=== PATIENT | female | born 1985 | race Hispanic/Latino ===

== ENCOUNTER 2016-05-14 13:05 | Emergency (ER) | payer MEDICAID ==
[2016-05-14 13:56] VITALS: BP 111/60
--- NOTE | 2016-05-14 17:36 | Emergency Department Report ---
Entered by TARSHA CHÁVEZ, acting as scribe for RICKEY JAIME PA. Abscess Boil HPI - HPI Chief Complaint: Skin/Abscess/Foreign Body Stated Complaint: ABSCESS Time Seen by Provider: 05/14/16 17:13 Duration: 4 Days Location: Other (right flank area) Severity: Moderate (5/10, burning in quality) History: Yes Fever (100.8), Yes Pain, Yes Purulent Drainage (green in color), Yes Previous History (last one occurred one year ago), No Numbness, No Foreign Body HPI: 31 y/o female presents to the ED c/o abscess to the right flank area beginning 4 days ago. Associated symptoms of burning pain and itching in the affected area, subjective fever and green drainage from the affected area, but she denies nausea, vomiting, SOB, chest pain, abdominal pain outside of the affected area. She has experienced similar symptoms previously, with the last episode occurring one year ago Home Medications: Home Medications Medication Instructions Recorded Confirmed Last Taken Amitriptyline [Elavil] 25 mg PO PRN PRN 03/18/14 03/18/14 Unknown HYDROcodone/APAP 5-325 [[place] 1 tab PO PRN PRN 03/18/14 03/18/14 Unknown 5-325 mg TAB] Multivitamin/Iron/Folic Acid 1 tab PO DAILY 03/18/14 03/18/14 Unknown [[employer] [employer] [facility] Tab] Previous Rx's Medication Instructions Recorded Last Taken Type HYDROcodone/APAP 5-325 [[place] 1 each PO Q6HR PRN #30 tablet 03/26/14 Unknown Rx 5-325 mg TAB] Doxycycline [Vibramycin CAP] 100 mg PO Q12HR #28 capsule 10/03/14 Unknown Rx Acetaminophen/Codeine [Tylenol #3] 1 tab PO Q6H PRN #20 tab 10/14/14 Unknown Rx Acetaminophen/Codeine 1 tab PO TID PRN #15 tab 05/14/16 Unknown Rx [Acetaminophen-Codeine #3 TAB] Cephalexin [Keflex] 500 mg PO Q6HR #20 capsule 05/14/16 Unknown Rx Sulfamethoxazole/Trimethoprim 1 each PO BID #10 tablet 05/14/16 Unknown Rx [Bactrim DS TAB] Allergies/Adverse Reactions: Allergies Allergy/AdvReac Type Severity Reaction Status Date / Time tramadol Allergy Rash Verified 10/14/14 14:12 ibuprofen AdvReac Swelling Verified 10/14/14 14:12 CHERRIES AdvReac N/V/D Uncoded 10/14/14 14:13 ED Review of Systems ROS: Stated complaint: ABCESS Other details as noted in HPI Constitutional: fever (100.8) Respiratory: denies: shortness of breath Cardiovascular: denies: chest pain Gastrointestinal: nausea. denies: abdominal pain (outside of the affected area) , vomiting Skin: other (painful abscess to the right flank area) ED Past Medical Hx - Past Medical History Hx Hypertension: No Hx GERD: Yes Hx Renal Disease: No Hx Headaches / Migraines: Yes Hx Seizures: Yes (During only. LAST SEIZURE 09/15/2011) Hx Psychiatric Treatment: Yes (depression,anxiety) Hx Asthma: No Additional medical history: cervical cancer cells. MVP. ovarian cysts - Surgical History Additional Surgical History: TUBAL LIGATION. D&C. LAPROSCOPY - Social History Smoking Status: Current Every Day Smoker Substance Use Type: None - Medications Home Medications: Home Medications Medication Instructions Recorded Confirmed Last Taken Type Amitriptyline [Elavil] 25 mg PO PRN PRN 03/18/14 03/18/14 Unknown History HYDROcodone/APAP 5-325 [[place] 1 tab PO PRN PRN 03/18/14 03/18/14 Unknown History 5-325 mg TAB] Multivitamin/Iron/Folic Acid 1 tab PO DAILY 03/18/14 03/18/14 Unknown History [[employer] [facility] Tab] HYDROcodone/APAP 5-325 [[place] 1 each PO Q6HR PRN #30 tablet 03/26/14 Unknown Rx 5-325 mg TAB] Doxycycline [Vibramycin CAP] 100 mg PO Q12HR #28 capsule 10/03/14 Unknown Rx Acetaminophen/Codeine [Tylenol #3] 1 tab PO Q6H PRN #20 tab 10/14/14 Unknown Rx Acetaminophen/Codeine 1 tab PO TID PRN #15 tab 05/14/16 Unknown Rx [Acetaminophen-Codeine #3 TAB] Cephalexin [Keflex] 500 mg PO Q6HR #20 capsule 05/14/16 Unknown Rx Sulfamethoxazole/Trimethoprim 1 each PO BID #10 tablet 05/14/16 Unknown Rx [Bactrim DS TAB] ED Abscess Boil Physical Exam - Exam General: Vital signs noted. No distress. Alert and acting appropriately. Front/Back of Body, Lg (Color): 1 - right flank area Size: 3 cm Exam: Yes Tenderness (to palpation), Yes Surrounding Cellulites/Erythema ( associated erythema), No Fluctuance (indurated) Exam: HEAD: Normocephalic. Atraumatic. EYES: Extraocular motions are intact, PERRL. EARS: External auditory canals and tympanic membranes clear; hearing grossly intact. NOSE: Normal nasal mucosa with no nasal discharge. THROAT: No erythema, swelling or exudates. NECK: Supple, nontender, without lymphadenopathy. No meningitic signs are noted. CHEST/LUNGS: Clear to auscultation throughout. HEART/CARDIOVASCULAR: Regular rate and rhythm. No murmurs, rubs or gallops. ABDOMEN: Abdomen is soft, nontender. Bowel sounds normoactive. No guarding or rebound tenderness. Noted is a 3cm indurated abscess to the right flank area that is tender and erythematous, no fluctuance noted. EXTREMITIES: No cyanosis, clubbing or edema. Peripheral pulses intact. Capillary refill less than 2 seconds. ED Course Vital Signs 05/14/16 13:51 Temperature 98.7 F Pulse Rate 97 H Respiratory 16 Rate Blood Pressure 111/60 O2 Sat by Pulse 98 Oximetry Critical care attestation.: If time is entered above; I have spent that time in minutes in the direct care of this critically ill patient, excluding procedure time. ED Medical Decision Making - Medical Decision Making 31 y/o female patient presents complaining of abscess to the right flank area beginning 4 days ago. Patient is in no acute distress at this time. Explained to patient that the area is non-fluctuant and does not need to be drained. Patient will be sent home on antibiotics (Keflex and Bactrim) and Tylenol 3 for pain control. She will be discharged home and is encouraged to follow up with a primary care provider. She is encouraged to return to the emergency room for any worsening symptoms. ED Disposition Clinical Impression: Abscess Disposition: DISCHARGED TO HOME OR SELFCARE Is pt being admited?: No Does the pt Need Aspirin: No Condition: Stable Instructions: Abscess (ED) Additional Instructions: Apply warm compresses to the affected area. Complete antibiotic course. Follow-up with primary care provider. Return to the emergency department if symptoms worsen. Prescriptions: Acetaminophen/Codeine [Acetaminophen-Codeine #3 TAB] 1 tab PO TID PRN #15 tab PRN Reason: Breakthrough Pain Cephalexin [Keflex] 500 mg PO Q6HR #20 capsule Sulfamethoxazole/Trimethoprim [Bactrim DS TAB] 1 each PO BID #10 tablet Referrals: PRIMARY CARE, [Primary Care Provider] - 3-5 Days [facility] [Outside] - 3-5 Days Forms: Work/School Release Form(ED) Time of Disposition: 17:29 This documentation as recorded by the KYLER taylor GRACE,accurately reflects the service I personally performed and the decisions made by YENI lynn NATASHA, PA.
== END 2016-05-14 18:08 | disposition home or self-care (01) ==
LOC: ED 13:05
DX: L02.211 Cutaneous abscess of abdominal wall (principal); K21.9 Gastro-esophageal reflux disease without esophagitis; G43.909 Migraine, unspecified, not intractable, without status migrainosus; F32.9 Major depressive disorder, single episode, unspecified; F41.9 Anxiety disorder, unspecified; F17.200 Nicotine dependence, unspecified, uncomplicated; Z98.51 Tubal ligation status; Z88.6 Allergy status to analgesic agent; Z88.8 Allergy status to other drugs, medicaments and biological substances
CPT/HCPCS: 99283

== ENCOUNTER 2016-07-20 15:03 | Outpatient (CLI) | payer MEDICAID ==
[2016-07-20 15:54] LABS: Basophils % (Auto) 0.6 % (0.0-1.8); Eosinophils % (Auto) 0.2 % (0.0-4.3); Hematocrit 40.4 % (30.3-42.9); Mean Corpuscular HGB Conc 35 % (30-34); Mean Corpuscular Hemoglobin 32 pg (28-32); Mean Corpuscular Volume 91 fl (79-97); Platelet Count 248 K/mm3 (140-440); Red Blood Count 4.44 M/mm3 (3.65-5.03); White Blood Count 7.9 K/mm3 (4.5-11.0)
[2016-07-20 16:12] LABS: Alanine Aminotransferase 14 units/L (7-56); Albumin 4.6 g/dL (3.9-5); Albumin/Globulin Ratio 1.8 %; Alkaline Phosphatase 71 units/L (35-129); Anion Gap 16 mmol/L; Blood Urea Nitrogen 10 mg/dL (7-17); Carbon Dioxide 26 mmol/L (22-30); Chloride 98.7 mmol/L (98-107); Glucose 93 mg/dL (65-100); Potassium 3.8 mmol/L (3.6-5.0); Sodium 137 mmol/L (137-145); Total Protein 7.2 g/dL (6.3-8.2)
== END 2016-07-20 15:04 | disposition home or self-care (01) ==
LOC: LAB 15:03
PROVIDERS: ATTEND Psychiatry & Neurology Psychiatry
DX: F31.64 Bipolar disorder, current episode mixed, severe, with psychotic features (principal)
CPT/HCPCS: 36415; 80053; 84703; 85025

== ENCOUNTER 2016-07-21 19:53 | Emergency (ER) | payer MEDICAID ==
[2016-07-21 20:35] VITALS: BP 124/80
[2016-07-21 21:14] LABS: Basophils % (Auto) 0.7 % (0.0-1.8); Eosinophils % (Auto) 0.7 % (0.0-4.3); Hematocrit 39.6 % (30.3-42.9); Hemoglobin 13.6 gm/dl (10.1-14.3); Mean Corpuscular HGB Conc 34 % (30-34); Mean Corpuscular Hemoglobin 32 pg (28-32); Mean Corpuscular Volume 93 fl (79-97); Platelet Count 223 K/mm3 (140-440); Red Blood Count 4.27 M/mm3 (3.65-5.03); Red Cell Distribution Width 14.8 % (13.2-15.2); White Blood Count 7.8 K/mm3 (4.5-11.0)
[2016-07-21 21:33] LABS: Alanine Aminotransferase 11 units/L (7-56); Albumin 4.2 g/dL (3.9-5); Albumin/Globulin Ratio 1.6 %; Alkaline Phosphatase 67 units/L (35-129); Anion Gap 18 mmol/L; Bilirubin,Total < 0.20 mg/dL (0.1-1.2); Blood Urea Nitrogen 15 mg/dL (7-17); Calcium 9.1 mg/dL (8.4-10.2); Carbon Dioxide 25 mmol/L (22-30); Chloride 98.1 mmol/L (98-107); Glucose 88 mg/dL (65-100); Lipase 44 units/L (13-60); Sodium 137 mmol/L (137-145); Total Protein 6.9 g/dL (6.3-8.2)
== END 2016-07-22 01:11 | disposition left against medical advice (07) ==
LOC: ED 19:53
DX: R10.9 Unspecified abdominal pain (principal); R11.10 Vomiting, unspecified; Z53.21 Procedure and treatment not carried out due to patient leaving prior to being seen by health care provider
CPT/HCPCS: 36415; 80053; 83690; 85025